=== PATIENT | male | born 1985 | race Caucasian/White ===

== ENCOUNTER 2019-05-23 16:44 | Emergency (ER) | payer SELFPAY ==
[~2019-05-23] VITALS: Ht 175.3 cm; Wt 75.5 kg
== END 2019-05-23 17:50 | disposition home or self-care (01) ==
LOC: ED 16:44
DX: Z00.8 Encounter for other general examination (principal)

== ENCOUNTER 2019-05-23 18:13 | Emergency (ER) | payer SELFPAY ==
[~2019-05-23] VITALS: Ht 175.3 cm; Wt 75.3 kg
--- OUTSIDE RECORDS SUMMARY | 2019-05-23 18:14 | XMS ---
PreManage Notification: LIANNE PALMA Security Credit Investigator Events No recent Security Events currently on file CRITERIA MET - [facility] - 2 Visits in 30 Days CARE PROVIDERS There are no care providers on record at this time. Mayelin has no Care Guidelines for this patient. [facility]12 MO[facility] NOTE: Visits indicate total known visits. ED/C VISIT TRACKING (12 MO.) [facility]2019 [facility] COMPLAINT: - URINE PROBLEM 05/23/2019 16:45 [facility] [place] TYPE: Emergency COMPLAINT: - URINE PROBLEM INPATIENT VISIT TRACKING (12 MO.) No inpatient visits to display in this time frame [id number]
== END 2019-05-23 19:26 | disposition home or self-care (01) ==
LOC: ED 18:13
DX: N34.2 Other urethritis (principal); F17.200 Nicotine dependence, unspecified, uncomplicated
CPT/HCPCS: 87491; 87591; 96372; 99283-25; J0696